=== PATIENT | female | born 1930 | race Caucasian/White ===

== ENCOUNTER 2017-05-06 12:07 | Inpatient (IN) | payer OTHER, MEDICARE ==
--- NOTE | 2017-05-06 15:03 | PDOC ---
History of Present Illness <Pepe Singh - Last Filed: 05/06/17 19:51> - History of Present Illness Initial Comments: 87 y/o female with PMH of HTN, CHF, and angina presenting with left hip pain and left foot parasthesias after tripping over a shopping cart wheel and falling. She states she fell to her left side but and did not hit her head or injure any other part of her body. Denies any pre-syncopal sensation, chest pain , sob, etc. Her PCP is Dr. Moreau. 05/06/17 15:18 <Brayan Manrique - Last Filed: 05/09/17 12:49> - General Chief Complaint: Injury Stated Complaint: FALL Time Seen by Provider: 05/06/17 15:02 Past History <Pepe Singh - Last Filed: 05/06/17 19:51> - Past Medical History Anemia: No Asthma: No Cancer: No Cardiac Disorders: No CVA: No COPD: No CHF: No Dementia: No Diabetes: No GI Disorders: Yes (BLEEDING ULCER 2010) Disorders: No HTN: Yes Hypercholesterolemia: Yes Liver Disease: No Seizures: No Thyroid Disease: Yes (HYPOTHYROID) - Surgical History Abdominal Surgery: No Appendectomy: No Cardiac Surgery: No Cholecystectomy: Yes Lung Surgery: No Neurologic Surgery: No Orthopedic Surgery: No - Suicide/Smoking/Psychosocial Hx Smoking History: Never smoked Have you smoked in the past 12 months: No Information on smoking cessation initiated: No Hx Alcohol Use: No Drug/Substance Use Hx: No Substance Use Type: None, Alcohol Hx Substance Use Treatment: No <Brayan Manrique - Last Filed: 05/09/17 12:49> - Past Medical History Allergies/Adverse Reactions: Allergies Allergy/AdvReac Type Severity Reaction Status Date / Time No Known Allergies Allergy Verified 05/06/17 12:09 Home Medications: Ambulatory Orders Beta-Carotene(A) W-C & E/Min [Ocuvite Tablet] 1 each PO DAILY 02/15/13 Ca Cmb No.1/Vit D3/B-6/FA/B12 [Vitamin D3 1,000 Unit Tablet] 2,000 each PO DAILY 02/15/13 Isosorbide Mononitrate [Imdur -] 60 mg PO DAILY 02/15/13 Simvastatin [Zocor -] 20 mg PO DAILY 02/15/13 Verapamil HCl [Verapamil ER] 240 mg PO DAILY 02/15/13 Review of Systems - Review of Systems Constitutional: No: Chills, Diaphoresis, Fever HEENTM: No: Blurred Vision Respiratory: No: Cough, Shortness of Breath, Productive cough Cardiac (ROS): Yes: Lightheadedness. No: Palpitations, Syncope ABD/GI: No: Constipated, Diarrhea, Nausea, Vomiting : No: Dysuria, Discharge, Frequency Integumentary: No: Lesions, Pallor, Rash Neurological: No: Headache, Numbness <HilariaAranzadaniel - Last Filed: 05/09/17 12:49> *Physical Exam - Vital Signs Last Vital Signs Temp Pulse Resp BP Pulse Ox 98.0 F 68 20 157/60 94 L 05/06/17 12:09 05/06/17 18:50 05/06/17 18:50 05/06/17 18:50 05/06/17 18:50 <SamanthaPepe - Last Filed: 05/06/17 19:51> - Vital Signs Last Vital Signs Temp Pulse Resp BP Pulse Ox 98.0 F 73 18 144/64 100 05/06/17 12:09 05/06/17 12:09 05/06/17 12:09 05/06/17 12:09 05/06/17 12:09 - Physical Exam General Appearance: Yes: Nourished, Appropriately Dressed. No: Apparent Distress HEENT: positive: EOMI, Normal ENT Inspection, Normal Voice Neck: positive: Trachea midline, Normal Thyroid, Supple. negative: Tender, Rigid Respiratory/Chest: positive: Lungs Clear, Normal Breath Sounds. negative: Chest Tender, Respiratory Distress, Accessory Muscle Use Cardiovascular: positive: Regular Rhythm, Regular Rate Gastrointestinal/Abdominal: positive: Normal Bowel Sounds, Flat, Soft. negative : Tender Musculoskeletal: negative: Normal Inspection (Sightly shortened anrotated left lower extremity.) Extremity: positive: Normal Capillary Refill, Normal Inspection, Normal Range of Motion, Other (Neurvascularly intact at left distal extremity but with slight inconsistent paresthesias.) Integumentary: positive: Normal Color, Dry, Warm Neurologic: positive: safety analyst II-XII NML intact, Fully Oriented, Alert, Normal Mood/ Affect. negative: Motor Strength 5/5 (Strength 5/5 in BL uEs and in RLE with good strength at knee and ankle of LLE without ability ot move hip secondary to defomrity and pain. No TTp at L ankel or Left knee. Obvious deformity at left hip.) <Brayan Manrique - Last Filed: 05/09/17 12:49> ED Treatment Course - LABORATORY CBC & Chemistry Diagram: 05/06/17 15:18 05/06/17 15:18 - ADDITIONAL ORDERS Additional order review: Laboratory Results 05/06/17 05/06/17 05/06/17 15:18 15:18 15:18 PT with INR 11.80 INR 1.04 Sodium 141 Potassium 4.0 Chloride 106 Carbon Dioxide 28 Anion Gap 7 L BUN 19 H Creatinine 0.9 Creat Clearance w eGFR 58.95 Random Glucose 95 Calcium 9.1 Total Bilirubin 0.8 AST 17 ALT 19 Alkaline Phosphatase 61 Total Protein 7.0 Albumin 3.9 Blood Type O POSITIVE Antibody Screen Negative 05/06/17 15:18 RBC 4.51 MCV 91.5 MCHC 32.7 RDW 13.9 MPV 8.7 Neutrophils % 85.5 H Lymphocytes % 7.8 L Monocytes % 5.7 Eosinophils % 0.6 Basophils % 0.4 - Medications Given in the ED: ED Medications Discontinued Medications Generic Name Dose Route Start Last Admin Trade Name Matthew PRN Reason Stop Dose Admin Morphine Sulfate 2 mg 05/06/17 16:09 05/06/17 16:33 Morphine Injection - IVPUSH 05/06/17 16:10 2 mg ONCE ONE Administration <Pepe Singh - Last Filed: 05/06/17 19:51> - LABORATORY CBC & Chemistry Diagram: 05/09/17 06:30 05/09/17 06:30 <Brayan Manrique - Last Filed: 05/09/17 12:49> Medical Decision Making - Medical Decision Making Hip xray demonstrating transervical comminuted fracture. Dr. Izquierdo evaluated patient and slated for surgery in the AM. Microblogged hospitalist as he is a [place] patient and they will get back to us after HELPER COORDINATOR sign out. Patient signed out to Dr. Martinez in stable condition pending sign out to medicine team HELPER COORDINATOR. 05/06/17 19:36 <Brayan Manrique - Last Filed: 05/09/17 12:49> *DC/Admit/Observation/Transfer - Discharge Dispostion Admit: Yes <Pepe Singh - Last Filed: 05/06/17 19:51> <Brayan Manrique - Last Filed: 05/09/17 12:49> Diagnosis at time of Disposition: Transcervical fracture of left femur Qualifiers: Encounter type: initial encounter Fracture type: closed Qualified Code(s): S72.032A - Displaced midcervical fracture of left femur, initial encounter for closed fracture - Discharge Dispostion Condition at time of disposition: Stable
--- NOTE | 2017-05-06 16:06 | PDOC ---
Attending Attestation - Resident Resident Name: HilariaAranzamincasey - ED Attending Attestation I have performed the following: I have examined & evaluated the patient, The case was reviewed & discussed with the resident, I agree w/resident's findings & plan, Exceptions are as noted - HPI HPI: 05/06/17 16:05 87y F presenting s/p fall after tripping on the wheel of a shopping cart with hip/leg pain. landed on L side, no head injury no head injury/loc on exam pt has a shortened extrenally rotated L hip n/v intact distally xray c/w ith hip fracture will admit for further management 05/06/17 18:14 lent aware npo after midinght pt had 2mg of morphine with good effect no pain currently - Physicial Exam PE: 05/10/17 16:37 see above - Medical Decision Making 05/10/17 16:37 see above Heart Score/ECG Review - ECG Impressions Comment:: 05/06/17 18:15 Twelve-lead EKG was performed and reviewed by me. There is normal sinus rhythm with a normal rate. Rate of 68 QTc interval 491 Nonspecific T wave abnormality
[2017-05-06] MEDS ORDERED: morphine CARPU-JECT 2 MG/1 ML DISP.SYRIN IVPUSH ONE (16:09)
[2017-05-06] MEDS ORDERED: morphine CARPU-JECT 2 MG/1 ML DISP.SYRIN ONE (16:28)
[2017-05-06 16:35] LABS: BASOPHIL 0.4 % (0-2.0); EOSINOPHIL 0.6 % (0-4.5); MCH 29.9 pg (25.7-33.7); MCHC 32.7 g/dl (32.0-36.0); MEAN CELL VOLUME 91.5 fl (80-96); MEAN PLT VOLUME 8.7 fl (7.5-11.1); NEUTROPHILS 85.5 % (42.8-82.8); PLATELET COUNT 276 K/MM3 (134-434); RDW 13.9 % (11.6-15.6); WHITE BLOOD COUNT 12.6 K/mm3 (4.0-10.0)
[2017-05-06 17:01] LABS: INR 1.04 (0.82-1.09); PROTHROMBIN TIME (PATIENT) 11.8 SEC (9.98-11.88)
--- NOTE | 2017-05-06 17:01 | CONS ---
ORTHOPEDIC EMERGENCY ROOM CONSULTATION/[facility] DATE OF CONSULTATION: 05/06/2017 HISTORY OF PRESENT ILLNESS: Patient is status post a fall today, complaining of pain and inability to ambulate to the left hip. Patient denies LOC. She is on no anticoagulation, does not smoke. She is an ambulator. PHYSICAL EXAMINATION: Her left lower extremity is shortened and externally rotated. Marked increased pain with range of motion of her hip. Good range of motion of knee, ankle, and toes. Neurovascularly intact. Nontender pelvis, pubic region, iliac wing, SI joint, and sacrum. Otherwise, neurovascularly intact. X-rays, taken today in the emergency room, show a displaced left femoral neck fracture. IMPRESSION: Displaced left femoral neck fracture. Risks, benefits, and alternatives discussed with the patient and with daughter in great detail. Patient will be booked for a left hemiarthroplasty tomorrow. We will keep her n.p.o. past midnight. BENJAMIN CRUZ M.D. [id number]
[2017-05-06 17:11] LABS: ALBUMIN 3.9 g/dl (3.4-5.0); ANION GAP 7 (8-16); CALCIUM 9.1 mg/dL (8.5-10.1); CO2 28 mmol/L (21-32); CREATININE 0.9 mg/dL (0.55-1.02); GLUCOSE,RANDOM 95 mg/dL (74-106); SGPT/ALT 19 U/L (12-78)
[2017-05-06 17:17] LABS: ALK PHOS 61 U/L (45-117); BILIRUBIN,TOTAL 0.8 mg/dL (0.2-1.0); SGOT/AST 17 U/L (15-37)
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
[2017-05-06] MEDS ORDERED: morphine SULFATE 4 MG/ML VIAL IVPUSH PRN (20:01)
[2017-05-06] MEDS ORDERED: morphine SULFATE 4 MG/ML VIAL ONE (22:26)
[2017-05-07] MEDS ORDERED: morphine SULFATE 4 MG/ML VIAL IVPUSH PRN ×2 (02:31→16:25)
[2017-05-07 02:48] VITALS: BMI 29.5
[2017-05-07] MEDS ORDERED: DEXTROSE 5%-0.45% SALINE 1,000 ML IV SCH ×2 (04:45→16:25)
[2017-05-07 08:28] LABS: BASOPHIL 0.8 % (0-2.0); EOSINOPHIL 0.7 % (0-4.5); MCH 29.4 pg (25.7-33.7); MCHC 32.7 g/dl (32.0-36.0); MEAN PLT VOLUME 8.4 fl (7.5-11.1); NEUTROPHILS 76.9 % (42.8-82.8); PLATELET COUNT 219 K/MM3 (134-434); RDW 13.9 % (11.6-15.6)
[2017-05-07 08:53] LABS: ANION GAP 8 (8-16); CALCIUM 8.7 mg/dL (8.5-10.1); CO2 27 mmol/L (21-32); CREATININE 0.7 mg/dL (0.55-1.02); GLUCOSE,RANDOM 103 mg/dL (74-106); MAGNESIUM 1.9 mg/dL (1.8-2.4)
--- NOTE | 2017-05-07 08:59 | CONSULT ---
Consult - text type - Consultation Consultation Note: FULL CONSULT DICTATED LAST NIGHT IN ER IMP: LEFT FEMORAL NECK (DISPLACED) HIP FX PLAN: ---> TODAY FOR HEMIARTHROPLASTY
--- NOTE | 2017-05-07 09:32 | PN ---
Progress Note (short form) - Note Progress Note: Pt seen and examined. She has a left hip/femoral neck fracture. Her LLE is shortened and externally rotated, but grossly NVI. She is NPO for left hip hemiarthroplasty surgery today. All questions and concerns were addressed.
--- NOTE | 2017-05-07 11:16 | PN ---
Progress Note, Physician Chief Complaint: Ms Hair says her leg is hurting and she did not sleep well last night. Denies cp, sob, n/v. - Current Medication List Current Medications: Active Medications Dextrose/Sodium Chloride (D5-1/2ns -) 1,000 mls @ 30 mls/hr IV ASDIR OLINDA Last Admin: 05/07/17 04:54 Dose: 30 mls/hr Isosorbide Mononitrate (Imdur -) 60 mg PO DAILY OLINDA Morphine Sulfate (Morphine Sulfate) 2 mg IVPUSH Q4H PRN PRN Reason: PAIN Last Admin: 05/07/17 02:41 Dose: 2 mg Non-Formulary Medication (Beta-Carotene(A) W-C & E/Min [Ocuvite Tablet]) 1 each PO DAILY OLINDA Non-Formulary Medication (Ca Cmb No.1/Vit D3/B-6/Fa/B12 [Vitamin D3 1,000 Unit Tablet]) 2,000 each PO DAILY OLINDA Non-Formulary Medication (Simvastatin) 20 mg PO DAILY OLINDA Non-Formulary Medication (Verapamil Hcl [Verapamil Er]) 240 mg PO DAILY [facility] - Objective Vital Signs: Vital Signs Temperature 36.8 C 05/07/17 09:43 Pulse Rate 83 05/07/17 09:43 Respiratory Rate 18 05/07/17 09:43 Blood Pressure 153/74 05/07/17 09:43 O2 Sat by Pulse Oximetry (%) 94 L 05/07/17 02:48 Constitutional: Yes: Well Nourished, No Distress, Calm Cardiovascular: Yes: Regular Rate and Rhythm. No: Gallop, Murmur, Rub Respiratory: Yes: Regular, CTA Bilaterally. No: Rales, Rhonchi, Wheezes Gastrointestinal: Yes: Normal Bowel Sounds, Soft. No: Distention, Tenderness Extremities: Yes: WNL Edema: No Labs: CBC, BMP 05/07/17 07:30 05/07/17 07:30 INR, PTT INR 1.04 (0.82-1.09) 05/06/17 15:18 Problem List - Problems (1) Fracture of femoral neck, left Assessment/Plan: -patient with mechanical fall and fracture -medical stable for surgery -cardiology note reviewed -planning for intervention today per ortho -SNF placement Code(s): S72.002A - FRACTURE OF UNSP PART OF NECK OF LEFT FEMUR, INIT Qualifiers: Encounter type: initial encounter (2) Hyperlipidemia Assessment/Plan: -continue statin Code(s): E78.5 - HYPERLIPIDEMIA, UNSPECIFIED (3) Hypertension Assessment/Plan: -continue imdur and verapamil Code(s): I10 - ESSENTIAL (PRIMARY) HYPERTENSION Qualifiers: Hypertension type: essential hypertension Qualified Code(s): I10 - Essential (primary) hypertension
--- NOTE | 2017-05-07 11:32 | CON.CARD ---
Consult Consult Specialty:: Cardiology Reason for Consultation:: preop clearence - History of Present Illness Chief Complaint: hip fx - History Source History Provided By: Patient, Significant Other, Medical Record - Past Medical History Cardio/Vascular: Yes: CAD, HTN, Hyperlipdemia Gastrointestinal: Yes: Gastritis, GI Bleed, Peptic Ulcer Disease - Past Surgical History Past Surgical History: Yes: Cataract Removal (left eye), Cholecystectomy - Alcohol/Substance Use Hx Alcohol Use: No - Smoking History Smoking history: Never smoked Have you smoked in the past 12 months: No - Social History Occupation: Former housewife Home Medications - Allergies Allergies/Adverse Reactions: Allergies Allergy/AdvReac Type Severity Reaction Status Date / Time No Known Allergies Allergy Verified 05/06/17 12:09 - Home Medications Home Medications: Ambulatory Orders Beta-Carotene(A) W-C & E/Min [Ocuvite Tablet] 1 each PO DAILY 02/15/13 Ca Cmb No.1/Vit D3/B-6/FA/B12 [Vitamin D3 1,000 Unit Tablet] 2,000 each PO DAILY 02/15/13 Isosorbide Mononitrate [Imdur -] 60 mg PO DAILY 02/15/13 Simvastatin [Zocor -] 20 mg PO DAILY 02/15/13 Verapamil HCl [Verapamil ER] 240 mg PO DAILY 02/15/13 Family Disease History - Family Disease History Family Disease History: Heart Disease: Father Review of Systems - Review of Systems Constitutional: reports: No Symptoms Eyes: reports: No Symptoms HENT: reports: No Symptoms Neck: reports: No Symptoms Cardiovascular: reports: No Symptoms Gastrointestinal: reports: No Symptoms Genitourinary: reports: No Symptoms Breasts: reports: No Symptoms Reported Musculoskeletal: reports: No Symptoms Integumentary: reports: No Symptoms Neurological: reports: No Symptoms Endocrine: reports: No Symptoms Hematology/Lymphatic: reports: No Symptoms Psychiatric: reports: No Symptoms Vital Signs: Vital Signs Temperature 98.2 F 05/07/17 09:43 Pulse Rate 83 05/07/17 09:43 Respiratory Rate 18 05/07/17 09:43 Blood Pressure 153/74 05/07/17 09:43 O2 Sat by Pulse Oximetry (%) 94 L 05/07/17 02:48 Constitutional: Yes: Well Nourished, No Distress, Calm Eyes: Yes: WNL, Conjunctiva Clear, EOM Intact HENT: Yes: WNL, Atraumatic, Normocephalic Neck: Yes: WNL, Supple, Trachea Midline Respiratory: Yes: WNL, Regular, CTA Bilaterally Gastrointestinal: Yes: WNL, Normal Bowel Sounds Renal/: Yes: WNL Cardiovascular: Yes: WNL, Regular Rate and Rhythm Musculoskeletal: Yes: WNL Extremities: Yes: External Rotation Integumentary: Yes: WNL Neurological: Yes: WNL, Alert, Oriented ...Motor Strength: WNL Psychiatric: Yes: WNL, Alert, Oriented - Other Data Labs, Other Data: CBC, BMP 05/07/17 07:30 05/07/17 07:30 INR, PTT INR 1.04 (0.82-1.09) 05/06/17 15:18 Laboratory Tests 05/06/17 05/06/17 05/06/17 15:18 15:18 15:18 WBC 12.6 H RBC 4.51 Hgb 13.5 Hct 41.3 MCV 91.5 MCH 29.9 MCHC 32.7 RDW 13.9 Plt Count 276 MPV 8.7 Neutrophils % 85.5 H Lymphocytes % 7.8 L Monocytes % 5.7 Eosinophils % 0.6 Basophils % 0.4 PT with INR 11.80 INR 1.04 Sodium 141 Potassium 4.0 Chloride 106 Carbon Dioxide 28 Anion Gap 7 L BUN 19 H Creatinine 0.9 Creat Clearance w eGFR 58.95 Random Glucose 95 Calcium 9.1 Phosphorus Magnesium Total Bilirubin 0.8 AST 17 ALT 19 Alkaline Phosphatase 61 Total Protein 7.0 Albumin 3.9 Blood Type Antibody Screen 05/06/17 05/07/17 05/07/17 15:18 07:30 07:30 WBC 11.0 H RBC 4.59 Hgb 13.5 Hct 41.3 MCV 90.0 MCH 29.4 MCHC 32.7 RDW 13.9 Plt Count 219 D MPV 8.4 Neutrophils % 76.9 Lymphocytes % 10.1 D Monocytes % 11.5 H D Eosinophils % 0.7 Basophils % 0.8 PT with INR INR Sodium 142 Potassium 3.6 Chloride 107 Carbon Dioxide 27 Anion Gap 8 BUN 16 Creatinine 0.7 D Creat Clearance w eGFR Random Glucose 103 Calcium 8.7 Phosphorus 3.0 Magnesium 1.9 Total Bilirubin AST ALT Alkaline Phosphatase Total Protein Albumin Blood Type O POSITIVE Antibody Screen Negative Imaging - Results Chest X-ray: Image Reviewed (no i/e) EKG: Image Reviewed (sr apcs) Problem List - Problems (1) DVT prophylaxis Code(s): [id number] - (2) Fracture of femoral neck, left Code(s): S72.002A - FRACTURE OF UNSP PART OF NECK OF LEFT FEMUR, INIT (3) History of angina Code(s): Z86.79 - PERSONAL HISTORY OF OTHER DISEASES OF THE CIRCULATORY SYSTEM (4) Left knee pain Code(s): M25.562 - PAIN IN LEFT KNEE (5) Leukocytosis Code(s): D72.829 - ELEVATED WHITE BLOOD CELL COUNT, UNSPECIFIED (6) Transcervical fracture of left femur Code(s): S72.032A - DISPLACED MIDCERVICAL FRACTURE OF LEFT FEMUR, INIT Qualifiers: Encounter type: initial encounter Fracture type: closed Qualified Code(s) : S72.032A - Displaced midcervical fracture of left femur, initial encounter for closed fracture (7) Arthralgia Code(s): M25.50 - PAIN IN UNSPECIFIED JOINT Qualifiers: Joint pain location: knee Laterality: left Qualified Code(s): M25.562 - Pain in left knee (8) Cellulitis of left leg Code(s): L03.116 - CELLULITIS OF LEFT LOWER LIMB (9) Edema Code(s): R60.9 - EDEMA, UNSPECIFIED Qualifiers: Edema type: localized Qualified Code(s): R60.0 - Localized edema (10) Humeral surgical neck fracture Code(s): S42.213A - UNSP DISP FX OF SURGICAL NECK OF UNSP HUMERUS, INIT (11) Hyperlipidemia Code(s): E78.5 - HYPERLIPIDEMIA, UNSPECIFIED (12) Hypertension Code(s): I10 - ESSENTIAL (PRIMARY) HYPERTENSION (13) Swelling of left knee joint Code(s): M25.462 - EFFUSION, LEFT KNEE Assessment/Plan femur fx ?h/o angina - no documented cad as per daughter no chf recent KS or recent CP htn hlp echo nl ef moderate MR ekg wnl apc's Plan pain controll dvt plx patient is mild to moderate risks for cardiovascular complication during orthopedic surgery. She is cleared and medically optimized. D/w daughter who understands risks of surgery at the advanced age.
--- NOTE | 2017-05-07 12:51 | EKG ---
Test Reason : Blood Pressure : / mmHG Vent. Rate : 068 BPM Atrial Rate : 068 BPM P-R Int : 196 ms QRS Dur : 092 ms QT Int : 462 ms P-R-T Axes : 115 022 043 degrees QTc Int : 491 ms POOR DATA QUALITY, INTERPRETATION MAY BE ADVERSELY AFFECTED SINUS RHYTHM WITH PREMATURE SUPRAVENTRICULAR COMPLEXES NONSPECIFIC T WAVE ABNORMALITY PROLONGED QT ABNORMAL ECG WHEN COMPARED WITH ECG OF 15-JUN-2003 14:14, PREMATURE SUPRAVENTRICULAR COMPLEXES ARE NOW PRESENT Confirmed by DAKOTA MCCULLOUGH, LISA ([id number]) on 05/07/2017 12:51:32 PM Referred By: Confirmed By:LISA DUNCAN MD
[2017-05-07] MEDS ORDERED: BUPIVACAINE HCL/PF 0.5% (5MG/ML) 10 ML VIAL ONE (13:36)
[2017-05-07] MEDS ORDERED: ceFAZolin SODIUM 1 GM VIAL ONE (14:25)
[2017-05-07] MEDS ORDERED: ceFAZolin SODIUM 1 GM VIAL IVPB ONE (14:28)
--- NOTE | 2017-05-07 15:17 | OP ---
Operative Note - Note: Operative Date: 05/07/17 Pre-Operative Diagnosis: left hip/femoral neck fracture Operation: left hip hemiarthroplasty Implants: Marcelino Hip Hemiarthroplasty: 44mm Head, #4 Stem, Standard neck Surgeon: Tal Tapia Academic Affairs Coordinator: Don Graves Anesthesiologist/AIR POLLUTION AUDITOR: Barrera Fofana Anesthesia: MAC Specimens Removed: femoral head Estimated Blood Loss (mls): 75 Drains, Volume Out (mls): 0 Blood Volume Replaced (mls): 0 Fluid Volume Replaced (mls): 1,000 Operative Report Dictated: Yes
--- NOTE | 2017-05-07 19:32 | OP ---
DATE OF OPERATION: PREOPERATIVE DIAGNOSIS: Left hip displaced femoral neck fracture. POSTOPERATIVE DIAGNOSIS: Left hip displaced femoral neck fracture. PROCEDURE: Left hip hemiarthroplasty. SURGEON: Mariano Chavez M.D. FRUIT GRADER OPERATOR: Baylee Schaefer NURSE SLUBBER TENDER: Barrera Fofana CRNA ANESTHESIA: MAC anesthesia with sinal. DRAINS: None. COMPLICATIONS: None. SPECIMEN: Femoral head. BLOOD LOSS: 75 mL. BLOOD GIVEN/FLUID REPLACEMENT: 1000 mL. INDICATION: This patient is an 87-year-old female with preoperative diagnosis of a displaced left femoral neck fracture. After understanding the potential risks, complications, alternatives, benefits to surgery versus nonsurgical treatment, the patient elected to undergo this procedure. Patient understands a life-long risk of dislocation, need for additional surgery, infection, need for physical therapy, leg length discrepancy, etc. DESCRIPTION OF PROCEDURE: Patient brought to the operating room, peripheral IV placed, IV sedation given, 1 g of IV Ancef was given, spinal anesthesia was induced and MAC anesthesia was induced. She was placed into the operating table in the right lateral decubitus position. The left lower extremity was prepped and draped in the sterile fashion. A curvilinear posterolateral standard approach. The incision was marked out with a marking pen and made with a number ten scalpel blade. Subcutaneous hemostasis achieved with a Bovie cautery. Dissection done down to the lateral fascia. This was incised, and Charnley retractor was placed into the blade with the medium blades. The leg was put into a position of forward flexion and internal rotation to put tension on the short external rotators, and they were taken off with a Bovie cautery from the posterior aspect of femoral neck, much was already taken off because of the fracture. The broach was placed onto the femoral neck and the appropriate angle of the neck cut was cauterized in with a Bovie cautery. The oscillating saw was used to cut down through this femoral neck cut. The bone was removed with a rongeur. Corkscrew was used to remove the femoral head. We trialed it, seemed to be a 44. Therefore we trialed with a 44, 45, 46, and likely will be a 44-mm head. The area was copiously irrigated and washed out. A little was removed. The capsule had been incised longitudinally for better exposure. Next, we prepared the femoral canal in the standard way, first with the canal finder, then with sequential broaches from 0 to 4; 4 was quite stable. We went down to the appropriate depth, standard neck and 44-mm head was placed on, seemed to have excellent suction, stability, and was quite stable in all positions. Neck the hip was dislocated, femoral neck and standard stem removed. The broach was removed. The area irrigated, washed out. Then we put in a real Edroy left hip number 4 stem hemiarthroplasty femoral stem, came down to the right position. The rongeur was used to remove a small amount of debris around the medial . Next, we put on the standard neck and 44-mm head, reduced it; this seemed to be quite good in all planes. It was extremely stable. The area was copiously irrigated and washed out. Next, the capsule was repaired with number 1 Tycron suture. This increased stability. Next, the deep fascia was repaired with number 1 Tycron suture with horizontal mattresses. Next the area was copiously irrigated and washed out. The deep fat layer was closed with 0 Vicryl, deep dermal layer closed with 2-0 Vicryl, and final skin reapproximation was done with a running subcuticular 3-0 V-Loc suture. The area was then washed and dried, prepped with Aquacel dressing. Patient was taken out of the lateral decubitus position. Total blood loss was 75 mL, total operative time was 45 minutes. There were no complications during the case. The patient tolerated the procedure quite well. An x-ray was taken. She was brought to the recovery room in stable condition. MARIANO CHAVEZ M.D. [id number]
[2017-05-07] MEDS: ATORVASTATIN CA 20 MG TABLET (FP) PO SCH (21:43)
[2017-05-07] MEDS: CEFAZOLIN 1 GM PUSH 1 GM/10 ML DISP.SYRIN IVPUSH SCH (21:43)
[2017-05-07] MEDS ORDERED: CEFAZOLIN 1 GM/D5W 50 ML IVPB SCH (22:00)
[2017-05-07] MEDS ORDERED: ATORVASTATIN CA 10 MG TABLET (FP) PO SCH (22:00)
[2017-05-08] MEDS: CEFAZOLIN 1 GM PUSH 1 GM/10 ML DISP.SYRIN IVPUSH SCH ×3 (02:15→17:55)
[2017-05-08] MEDS ORDERED: ASPIRIN 325 MG TABLET PO SCH (08:00)
[2017-05-08 08:13] LABS: BASOPHIL 0.3 % (0-2.0); EOSINOPHIL 0.1 % (0-4.5); MCH 29.9 pg (25.7-33.7); MCHC 33.5 g/dl (32.0-36.0); MEAN CELL VOLUME 89.5 fl (80-96); MEAN PLT VOLUME 8.5 fl (7.5-11.1); NEUTROPHILS 80.8 % (42.8-82.8); PLATELET COUNT 204 K/MM3 (134-434); RDW 13.8 % (11.6-15.6); WHITE BLOOD COUNT 16.5 K/mm3 (4.0-10.0)
--- NOTE | 2017-05-08 08:21 | PN ---
Progress Note (short form) - Note Progress Note: POD #1 - s/p left hip hemiarthroplasty under spinal anesthesia. VSS. Pt. doing well, resting comfortably in bed. Awake, alert, offering no complaints. No apparent anesthetic complications noted. Continue current care.
[2017-05-08 08:47] LABS: ANION GAP 10 (8-16); CALCIUM 8.4 mg/dL (8.5-10.1); CO2 27 mmol/L (21-32); GLUCOSE,RANDOM 105 mg/dL (74-106); MAGNESIUM 1.7 mg/dL (1.8-2.4)
[2017-05-08 08:49] LABS: CREATININE 0.8 mg/dL (0.55-1.02); PHOSPHOROUS 2.9 mg/dL (2.5-4.9)
--- NOTE | 2017-05-08 09:59 | PN ---
Progress Note (short form) - Note Progress Note: Ortho Pt seen and examined s/p left hip rivas pod #1 Selected Entries 05/08/17 06:00 Temperature 98.5 F Pulse Rate 83 Respiratory 20 Rate Blood Pressure 143/60 Laboratory Tests 05/08/17 06:00 WBC 16.5 H D Hgb 12.6 Hct 37.5 Plt Count 204 dressing c/d/i, calf soft, nt nvi a/p PT hip precautions dvt ppx pain control d/c planning
[2017-05-08] MEDS ORDERED: VERAPAMIL HCL 240 MG E.R. TABLET (FP) PO SCH (10:00)
[2017-05-08] MEDS ORDERED: ISOSORBIDE MONONITRATE 60 MG TAB.SR.24H (FP) PO SCH (10:00)
[2017-05-08] MEDS: VERAPAMIL HCL 240 MG E.R. TABLET (FP) PO SCH (10:22)
[2017-05-08] MEDS: ISOSORBIDE MONONITRATE 60 MG TAB.SR.24H (FP) PO SCH (10:33)
[2017-05-08] MEDS: ASPIRIN 325 MG TABLET PO SCH (10:33)
--- NOTE | 2017-05-08 16:17 | PN ---
Progress Note, Physician Chief Complaint: Ms Hair says her leg is hurting but is better. No cp, sob, n/v - Current Medication List Current Medications: Active Medications Aspirin (Asa -) 325 mg PO DAILY@0800 [facility] Last Admin: 05/08/17 10:33 Dose: 325 mg Atorvastatin Calcium (Lipitor -) 20 mg PO HS [facility] Last Admin: 05/07/17 21:43 Dose: 20 mg Fentanyl (Sublimaze Injection -) 25 mcg IVPUSH [id number] PRN PRN Reason: PAIN Cefazolin Sodium (Ancef -) 1 gm in 10 mls @ 120 mls/hr IVPUSH Q8H-IV [facility] Stop: 05/08/17 21:59 Last Admin: 05/08/17 10:20 Dose: 120 mls/hr Dextrose/Sodium Chloride (D5-1/2ns -) 1,000 mls @ 30 mls/hr IV ASDIR [facility] Last Admin: 05/07/17 16:25 Dose: 30 mls/hr Isosorbide Mononitrate (Imdur -) 60 mg PO DAILY [facility] Last Admin: 05/08/17 10:33 Dose: 60 mg Morphine Sulfate (Morphine Sulfate) 2 mg IVPUSH Q4H PRN PRN Reason: PAIN Last Admin: 05/07/17 18:47 Dose: 2 mg Verapamil HCl (Calan Sr -) 240 mg PO DAILY [facility] Last Admin: 05/08/17 10:22 Dose: 240 mg - Objective Vital Signs: Vital Signs Temperature 36.8 C 05/08/17 13:57 Pulse Rate 86 05/08/17 13:57 Respiratory Rate 18 05/08/17 13:57 Blood Pressure 98/55 05/08/17 13:57 O2 Sat by Pulse Oximetry (%) 99 05/07/17 22:00 Constitutional: Yes: Well Nourished, No Distress, Calm Cardiovascular: Yes: Regular Rate and Rhythm. No: Gallop, Murmur, Rub Respiratory: Yes: Regular, CTA Bilaterally. No: Rales, Rhonchi, Wheezes Gastrointestinal: Yes: Normal Bowel Sounds, Soft. No: Distention, Tenderness Extremities: Yes: WNL Edema: No Labs: CBC, BMP 05/08/17 06:00 05/08/17 06:00 INR, PTT INR 1.04 (0.82-1.09) 05/06/17 15:18 Problem List - Problems (1) Fracture of femoral neck, left Code(s): S72.002A - FRACTURE OF UNSP PART OF NECK OF LEFT FEMUR, INIT Qualifiers: Encounter type: initial encounter (2) Hyperlipidemia Code(s): E78.5 - HYPERLIPIDEMIA, UNSPECIFIED (3) Hypertension Code(s): I10 - ESSENTIAL (PRIMARY) HYPERTENSION Qualifiers: Hypertension type: essential hypertension Qualified Code(s): I10 - Essential (primary) hypertension Assessment/Plan (1) Fracture of femoral neck, left Assessment/Plan: -s/p surgical intervention without complications -appreciate ortho assistance -PT -plan for discharge to SNF Code(s): S72.002A - FRACTURE OF UNSP PART OF NECK OF LEFT FEMUR, INIT Qualifiers: Encounter type: initial encounter (2) Hyperlipidemia Assessment/Plan: -continue statin Code(s): E78.5 - HYPERLIPIDEMIA, UNSPECIFIED (3) Hypertension Assessment/Plan: -continue imdur and verapamil Code(s): I10 - ESSENTIAL (PRIMARY) HYPERTENSION Qualifiers: Hypertension type: essential hypertension Qualified Code(s): I10 - Essential (primary) hypertension
[2017-05-08] MEDS ORDERED: morphine SULFATE 4 MG/ML VIAL IVPB PRN (20:07)
[2017-05-08] MEDS: ATORVASTATIN CA 20 MG TABLET (FP) PO SCH (21:38)
[2017-05-09 08:08] LABS: MCH 29.9 pg (25.7-33.7); MCHC 33.2 g/dl (32.0-36.0); MEAN CELL VOLUME 90.2 fl (80-96); MEAN PLT VOLUME 8.6 fl (7.5-11.1); PLATELET COUNT 181 K/MM3 (134-434); RDW 13.4 % (11.6-15.6)
[2017-05-09 08:22] LABS: ANION GAP 8 (8-16); CALCIUM 7.9 mg/dL (8.5-10.1); CO2 26 mmol/L (21-32); GLUCOSE,RANDOM 90 mg/dL (74-106); MAGNESIUM 1.8 mg/dL (1.8-2.4)
[2017-05-09 08:24] LABS: CREATININE 0.9 mg/dL (0.55-1.02)
[2017-05-09] MEDS: VERAPAMIL HCL 240 MG E.R. TABLET (FP) PO SCH (09:08)
[2017-05-09] MEDS: oxyCODONE HCL 5 MG TABLET PO PRN ×2 (09:08→21:25)
[2017-05-09] MEDS: ASPIRIN 325 MG TABLET PO SCH (09:08)
[2017-05-09] MEDS: ISOSORBIDE MONONITRATE 60 MG TAB.SR.24H (FP) PO SCH (09:09)
--- NOTE | 2017-05-09 10:52 | PN ---
Progress Note (short form) - Note Progress Note: Ortho Pt seen and examined s/p left hip rivas pod #2 Selected Entries 05/09/17 05:08 Temperature 99.3 F Pulse Rate 74 Respiratory 20 Rate Blood Pressure 146/56 Laboratory Tests 05/09/17 06:30 WBC 17.0 H Hgb 10.8 D Hct 32.5 Plt Count 181 dressing c/d/i, calf soft, nt nvi a/p PT hip precautions dvt ppx pain control d/c planning
[2017-05-09] MEDS ORDERED: POTASSIUM CHLORIDE TABS 20 MEQ TABLET.ER (FP) PO ONE ×2 (11:18→17:30)
[2017-05-09] MEDS ORDERED: ENOXAPARIN NA (PORCINE) 40 MG/0.4 ML DISP.SYRIN SQ SCH (11:30)
--- NOTE | 2017-05-09 14:35 | PN ---
Progress Note, Physician Chief Complaint: Ms Hair says she feels great. Denies cp, sob, n/v. Says pain is very well controlled. - Current Medication List Current Medications: Active Medications Aspirin (Asa -) 325 mg PO DAILY@0800 [facility] Last Admin: 05/09/17 09:08 Dose: 325 mg Atorvastatin Calcium (Lipitor -) 20 mg PO HS [facility] Last Admin: 05/08/17 21:38 Dose: 20 mg Enoxaparin Sodium (Lovenox -) 40 mg SQ DAILY [facility] Fentanyl (Sublimaze Injection -) 25 mcg IVPUSH [id number] PRN PRN Reason: PAIN Dextrose/Sodium Chloride (D5-1/2ns -) 1,000 mls @ 30 mls/hr IV ASDIR [facility] Last Admin: 05/07/17 16:25 Dose: 30 mls/hr Isosorbide Mononitrate (Imdur -) 60 mg PO DAILY [facility] Last Admin: 05/09/17 09:09 Dose: 60 mg Morphine Sulfate (Morphine Sulfate) 1 mg IVPB Q4H PRN Oxycodone HCl (Roxicodone -) 5 mg PO Q4H PRN Last Admin: 05/09/17 09:08 Dose: 5 mg Verapamil HCl (Calan Sr -) 240 mg PO DAILY [facility] Last Admin: 05/09/17 09:08 Dose: 240 mg - Objective Vital Signs: Vital Signs Temperature 36.6 C 05/09/17 13:58 Pulse Rate 77 05/09/17 13:58 Respiratory Rate 18 05/09/17 13:58 Blood Pressure 100/46 05/09/17 13:58 O2 Sat by Pulse Oximetry (%) 98 05/08/17 21:00 Constitutional: Yes: Well Nourished, No Distress, Calm Cardiovascular: Yes: Regular Rate and Rhythm. No: Gallop, Murmur, Rub Respiratory: Yes: Regular, CTA Bilaterally. No: Rales, Rhonchi, Wheezes Gastrointestinal: Yes: Normal Bowel Sounds, Soft. No: Distention, Tenderness Extremities: Yes: WNL Edema: No Labs: CBC, BMP 05/09/17 06:30 05/09/17 06:30 INR, PTT INR 1.04 (0.82-1.09) 05/06/17 15:18 Problem List - Problems (1) Fracture of femoral neck, left Code(s): S72.002A - FRACTURE OF UNSP PART OF NECK OF LEFT FEMUR, INIT Qualifiers: Encounter type: initial encounter (2) Hyperlipidemia Code(s): E78.5 - HYPERLIPIDEMIA, UNSPECIFIED (3) Hypertension Code(s): I10 - ESSENTIAL (PRIMARY) HYPERTENSION Qualifiers: Hypertension type: essential hypertension Qualified Code(s): I10 - Essential (primary) hypertension (4) Leukocytosis Code(s): D72.829 - ELEVATED WHITE BLOOD CELL COUNT, UNSPECIFIED Assessment/Plan (1) Fracture of femoral neck, left Assessment/Plan: -s/p surgical intervention without complications -appreciate ortho assistance -continue PT -plan for discharge to SNF tomorrow Code(s): S72.002A - FRACTURE OF UNSP PART OF NECK OF LEFT FEMUR, INIT Qualifiers: Encounter type: initial encounter (2) Hyperlipidemia Assessment/Plan: -continue statin Code(s): E78.5 - HYPERLIPIDEMIA, UNSPECIFIED (3) Hypertension Assessment/Plan: -continue imdur and verapamil Code(s): I10 - ESSENTIAL (PRIMARY) HYPERTENSION Qualifiers: Hypertension type: essential hypertension Qualified Code(s): I10 - Essential (primary) hypertension (4) Leukocytosis -suspect chronic and increased secondary to stress from surgery -no signs of sepsis (fever, hypotension, malaise) -however want to confirm reactionary and not infectious -will obtain portable chest x-ray to evaluate for pneumonia -check urinalysis to evaluate for UTI -if both negative and WBC stable or improved, can discharge tomorrow
--- NOTE | 2017-05-09 15:18 | PATH ---
Surgical Pathology Report Patient Name: DORIS GRIJALVA Med. Rec. #: [id number] /Age/Gender: 1930 (Age: 87) / F Account: [id number] Location: [address] [place] [address]/[facility] Taken: 05/07/2017 Received: 05/08/2017 Reported: 05/09/2017 Physicians: Tal Tapia M.D. Specimen(s) Received LEFT FEMORAL HIP Clinical History Left hip fracture Final Diagnosis BONE, LEFT FEMORAL HEAD, REPLACEMENT: BONE WITH INTERSTITIAL HEMORRHAGE CONSISTENT WITH FRACTURE. Electronically Signed Dayne Schultz M.D. Gross Description Received in formalin, labeled "left femoral head," is a 4.2 x 4.2 x 3.5 cm. femoral head with no femoral neck attached. The margin of resection is red-brown, jagged and hemorrhagic. No areas of eburnation are identified. The articular surface is gaona-yellow and focally granular. The underlying trabecular bone is yellow, hard and focally hemorrhagic. A access service representative section is submitted in one cassette, following decalcification. 05/08/201705/08/2017
[2017-05-09] MEDS: ENOXAPARIN NA (PORCINE) 40 MG/0.4 ML DISP.SYRIN SQ SCH (17:23)
--- NOTE | 2017-05-09 20:31 | PN ---
Progress Note, Physician Chief Complaint: Pt A&Ox3; eating dinner. Denies chest pain, dyspnea, or leg pain, but finds it uncomfortable to have limited motion from the cushion strapped to her legs. Says she underwent physical therapy earlier today. History of Present Illness: 87 y/o white female with PMH of HTN, diastolic CHF, and angina presented with left hip pain and left foot parasthesias after tripping over a shopping cart wheel and falling. She states she fell to her left side but did not hit her head or injure any other part of her body. Denies any pre-syncopal sensation, chest pain, sob, etc. Her PCP is Dr. Moreau. - Current Medication List Current Medications: Active Medications Aspirin (Asa -) 325 mg PO DAILY@0800 [facility] Last Admin: 05/09/17 09:08 Dose: 325 mg Atorvastatin Calcium (Lipitor -) 20 mg PO HS [facility] Last Admin: 05/08/17 21:38 Dose: 20 mg Enoxaparin Sodium (Lovenox -) 40 mg SQ DAILY [facility] Last Admin: 05/09/17 17:23 Dose: 40 mg Fentanyl (Sublimaze Injection -) 25 mcg IVPUSH [id number] PRN PRN Reason: PAIN Isosorbide Mononitrate (Imdur -) 60 mg PO DAILY [facility] Last Admin: 05/09/17 09:09 Dose: 60 mg Morphine Sulfate (Morphine Sulfate) 1 mg IVPB Q4H PRN Oxycodone HCl (Roxicodone -) 5 mg PO Q4H PRN Last Admin: 05/09/17 09:08 Dose: 5 mg Verapamil HCl (Calan Sr -) 240 mg PO DAILY [facility] Last Admin: 05/09/17 09:08 Dose: 240 mg - Objective Vital Signs: Vital Signs Temperature 97.5 F L 05/09/17 17:58 Pulse Rate 71 05/09/17 17:58 Respiratory Rate 18 05/09/17 17:58 Blood Pressure 101/46 05/09/17 17:58 O2 Sat by Pulse Oximetry (%) 98 05/08/17 21:00 Constitutional: Yes: Calm Eyes: Yes: WNL HENT: Yes: WNL Neck: Yes: WNL Cardiovascular: Yes: Regular Rate and Rhythm, Murmur (2/4 diastolic murmur, RSB- ->base), S1, S2 Respiratory: Yes: WNL Gastrointestinal: Yes: Soft ...Rectal Exam: Yes: Deferred Genitourinary: Yes: Anuria Breast(s): Yes: WNL Musculoskeletal: Yes: Other (s/p LE fracture repair) Extremities: Yes: Cool Edema: No Peripheral Pulses WNL: Yes Wound/Incision: Yes: Sutures Intact Neurological: Yes: WNL Psychiatric: Yes: WNL Labs: CBC, BMP 05/09/17 06:30 05/09/17 06:30 INR, PTT INR 1.04 (0.82-1.09) 05/06/17 15:18 - ....Imaging Ultrasound: Report Reviewed (ECHO: normal LVEF; abnormal diastolic compiance; moderate PA) EKG: Image Reviewed (NSR; occasional APCs; nonspecific T wave changes) Problem List - Problems (1) Fracture of femoral neck, left Assessment/Plan: Pain management. Physical therapy. Code(s): S72.002A - FRACTURE OF UNSP PART OF NECK OF LEFT FEMUR, INIT Qualifiers: Encounter type: initial encounter (2) History of angina Assessment/Plan: Recommend lowering dose of ASA from 325 mg to 81 mg, unless other reasons exist for the need of the higher level. Code(s): Z86.79 - PERSONAL HISTORY OF OTHER DISEASES OF THE CIRCULATORY SYSTEM (3) Hyperlipidemia Assessment/Plan: on statin; f/u lipids. Code(s): E78.5 - HYPERLIPIDEMIA, UNSPECIFIED (4) Hypertension Assessment/Plan: On verapamil. f/u BP serially. Code(s): I10 - ESSENTIAL (PRIMARY) HYPERTENSION Qualifiers: Hypertension type: essential hypertension Qualified Code(s): I10 - Essential (primary) hypertension (5) Swelling of left knee joint Code(s): M25.462 - EFFUSION, LEFT KNEE (6) Hypomagnesemia Assessment/Plan: replete Mg and K+; f/u electrolytes. Code(s): E83.42 - HYPOMAGNESEMIA
--- NOTE | 2017-05-09 20:43 | PN ---
Progress Note, Physician Chief Complaint: Pt A&Ox3; sitting in chair; good appetite. She has no pain History of Present Illness: 87 y/o white female with PMH of HTN, diastolic CHF, and angina presented with left hip pain and left foot parasthesias after tripping over a shopping cart wheel and falling. She states she fell to her left side but did not hit her head or injure any other part of her body. Denies any pre-syncopal sensation, chest pain, sob, etc. Her PCP is Dr. Moreau. - Current Medication List Current Medications: Active Medications Aspirin (Asa -) 325 mg PO DAILY@0800 [facility] Last Admin: 05/09/17 09:08 Dose: 325 mg Atorvastatin Calcium (Lipitor -) 20 mg PO HS [facility] Last Admin: 05/08/17 21:38 Dose: 20 mg Enoxaparin Sodium (Lovenox -) 40 mg SQ DAILY [facility] Last Admin: 05/09/17 17:23 Dose: 40 mg Fentanyl (Sublimaze Injection -) 25 mcg IVPUSH [id number] PRN PRN Reason: PAIN Isosorbide Mononitrate (Imdur -) 60 mg PO DAILY [facility] Last Admin: 05/09/17 09:09 Dose: 60 mg Morphine Sulfate (Morphine Sulfate) 1 mg IVPB Q4H PRN Oxycodone HCl (Roxicodone -) 5 mg PO Q4H PRN Last Admin: 05/09/17 09:08 Dose: 5 mg Verapamil HCl (Calan Sr -) 240 mg PO DAILY [facility] Last Admin: 05/09/17 09:08 Dose: 240 mg - Objective Vital Signs: Vital Signs Temperature 97.5 F L 05/09/17 17:58 Pulse Rate 71 05/09/17 17:58 Respiratory Rate 18 05/09/17 17:58 Blood Pressure 101/46 05/09/17 17:58 O2 Sat by Pulse Oximetry (%) 98 05/08/17 21:00 Constitutional: Yes: No Distress Eyes: Yes: WNL HENT: Yes: WNL Neck: Yes: WNL Cardiovascular: Yes: Regular Rate and Rhythm, Murmur, S1, S2 Respiratory: Yes: WNL Gastrointestinal: Yes: Soft ...Rectal Exam: Yes: Deferred Genitourinary: No: Anuria Breast(s): Yes: WNL Musculoskeletal: Yes: Other (s/p left femur repair) Extremities: Yes: Cool, Other (mild left knee swelling) Edema: No Peripheral Pulses WNL: Yes Wound/Incision: Yes: Clean/Dry Neurological: Yes: WNL Psychiatric: Yes: WNL Labs: CBC, BMP 05/09/17 06:30 05/09/17 06:30 INR, PTT INR 1.04 (0.82-1.09) 05/06/17 15:18 Abnormal Lab Results 05/09/17 05/09/17 06:30 06:30 WBC 17.0 H Potassium 3.3 L BUN 27 H D Calcium 7.9 L Problem List - Problems (1) Fracture of femoral neck, left Assessment/Plan: Pain management. Physical therapy. Code(s): S72.002A - FRACTURE OF UNSP PART OF NECK OF LEFT FEMUR, INIT Qualifiers: Encounter type: initial encounter (2) History of angina Assessment/Plan: Recommend lowering dose of ASA from 325 mg to 81 mg, unless other reasons exist for the need of the higher level. On Imdur. On verapamil. F/u lipids (on statin). Code(s): Z86.79 - PERSONAL HISTORY OF OTHER DISEASES OF THE CIRCULATORY SYSTEM (3) Hyperlipidemia Assessment/Plan: on statin; f/u lipids. Code(s): E78.5 - HYPERLIPIDEMIA, UNSPECIFIED (4) Hypertension Assessment/Plan: On verapamil. f/u BP serially. Code(s): I10 - ESSENTIAL (PRIMARY) HYPERTENSION Qualifiers: Hypertension type: essential hypertension Qualified Code(s): I10 - Essential (primary) hypertension (5) Swelling of left knee joint Code(s): M25.462 - EFFUSION, LEFT KNEE (6) Hypomagnesemia Assessment/Plan: Mg now WNL, but K+ remains low. Code(s): E83.42 - HYPOMAGNESEMIA (7) Leukocytosis Assessment/Plan: Afebrile. Denies dysuria; no cough or sore throat. F/u serially; Code(s): D72.829 - ELEVATED WHITE BLOOD CELL COUNT, UNSPECIFIED
[2017-05-09] MEDS: ATORVASTATIN CA 20 MG TABLET (FP) PO SCH (21:25)
[2017-05-10 08:16] LABS: BASOPHIL 0.3 % (0-2.0); EOSINOPHIL 2.7 % (0-4.5); MCH 29.8 pg (25.7-33.7); MCHC 33.2 g/dl (32.0-36.0); MEAN CELL VOLUME 89.8 fl (80-96); NEUTROPHILS 78.7 % (42.8-82.8); PLATELET COUNT 206 K/MM3 (134-434); RDW 13.5 % (11.6-15.6); WHITE BLOOD COUNT 14.3 K/mm3 (4.0-10.0)
[2017-05-10 08:24] LABS: ANION GAP 8 (8-16); CALCIUM 8.5 mg/dL (8.5-10.1); CO2 27 mmol/L (21-32); CREATININE 1.7 mg/dL (0.55-1.02); GLUCOSE,RANDOM 89 mg/dL (74-106); PHOSPHOROUS 3.8 mg/dL (2.5-4.9)
[2017-05-10 09:08] LABS: URINE APPEARANCE CLOUDY; URINE BILIRUBIN NEGATIVE (NEGATIVE); URINE BLOOD 1+ (NEGATIVE); URINE COLOR AMBER; URINE GLUCOSE (UA) NEGATIVE (NEGATIVE); URINE KETONE NEGATIVE (NEGATIVE); URINE NITRITE NEGATIVE (NEGATIVE); URINE UROBILINOGEN NEGATIVE mg/dL (0.2-1.0)
[2017-05-10 09:09] LABS: URINE PROTEIN 2+ (NEGATIVE)
[2017-05-10 09:38] LABS: GRANULAR CASTS 4 /lpf; URINE HYALINE CAST 3 /lpf; URINE MUCUS RARE; URINE RBC 12 /hpf (0-3); URINE WBC 158 /hpf (3-5)
--- NOTE | 2017-05-10 09:47 | PN ---
Progress Note, Physician - Current Medication List Current Medications: Active Medications Aspirin (Asa -) 325 mg PO DAILY@0800 [facility] Last Admin: 05/09/17 09:08 Dose: 325 mg Atorvastatin Calcium (Lipitor -) 20 mg PO HS [facility] Last Admin: 05/09/17 21:25 Dose: 20 mg Enoxaparin Sodium (Lovenox -) 40 mg SQ DAILY [facility] Last Admin: 05/09/17 17:23 Dose: 40 mg Fentanyl (Sublimaze Injection -) 25 mcg IVPUSH [id number] PRN PRN Reason: PAIN Isosorbide Mononitrate (Imdur -) 60 mg PO DAILY [facility] Last Admin: 05/09/17 09:09 Dose: 60 mg Morphine Sulfate (Morphine Sulfate) 1 mg IVPB Q4H PRN Oxycodone HCl (Roxicodone -) 5 mg PO Q4H PRN Last Admin: 05/09/17 21:25 Dose: 5 mg Verapamil HCl (Calan Sr -) 240 mg PO DAILY [facility] Last Admin: 05/09/17 09:08 Dose: 240 mg - Objective Vital Signs: Vital Signs Temperature 97.7 F 05/10/17 09:01 Pulse Rate 76 05/10/17 09:01 Respiratory Rate 18 05/10/17 09:01 Blood Pressure 126/54 05/10/17 09:01 O2 Sat by Pulse Oximetry (%) 95 05/09/17 21:00 Eyes: Yes: WNL, Conjunctiva Clear, EOM Intact HENT: Yes: WNL, Atraumatic, Normocephalic Neck: Yes: WNL, Supple, Trachea Midline Cardiovascular: Yes: WNL, Regular Rate and Rhythm Respiratory: Yes: WNL, Regular, CTA Bilaterally Gastrointestinal: Yes: WNL, Normal Bowel Sounds Genitourinary: Yes: WNL Musculoskeletal: Yes: WNL Extremities: Yes: WNL Edema: No Integumentary: Yes: WNL Neurological: Yes: WNL, Alert, Oriented ...Motor Strength: WNL Psychiatric: Yes: WNL Labs: CBC, BMP 05/10/17 06:00 05/10/17 06:00 INR, PTT INR 1.04 (0.82-1.09) 05/06/17 15:18 Problem List - Problems (1) DVT prophylaxis Code(s): [id number] - (2) Fracture of femoral neck, left Code(s): S72.002A - FRACTURE OF UNSP PART OF NECK OF LEFT FEMUR, INIT Qualifiers: Encounter type: initial encounter (3) History of angina Code(s): Z86.79 - PERSONAL HISTORY OF OTHER DISEASES OF THE CIRCULATORY SYSTEM (4) Left knee pain Code(s): M25.562 - PAIN IN LEFT KNEE (5) Leukocytosis Code(s): D72.829 - ELEVATED WHITE BLOOD CELL COUNT, UNSPECIFIED (6) Transcervical fracture of left femur Code(s): S72.032A - DISPLACED MIDCERVICAL FRACTURE OF LEFT FEMUR, INIT Qualifiers: Encounter type: initial encounter Fracture type: closed Qualified Code(s) : S72.032A - Displaced midcervical fracture of left femur, initial encounter for closed fracture (7) Arthralgia Code(s): M25.50 - PAIN IN UNSPECIFIED JOINT Qualifiers: Joint pain location: knee Laterality: left Qualified Code(s): M25.562 - Pain in left knee (8) Cellulitis of left leg Code(s): L03.116 - CELLULITIS OF LEFT LOWER LIMB (9) Edema Code(s): R60.9 - EDEMA, UNSPECIFIED Qualifiers: Edema type: localized Qualified Code(s): R60.0 - Localized edema (10) Humeral surgical neck fracture Code(s): S42.213A - UNSP DISP FX OF SURGICAL NECK OF UNSP HUMERUS, INIT (11) Hyperlipidemia Code(s): E78.5 - HYPERLIPIDEMIA, UNSPECIFIED (12) Hypertension Code(s): I10 - ESSENTIAL (PRIMARY) HYPERTENSION Qualifiers: Hypertension type: essential hypertension Qualified Code(s): I10 - Essential (primary) hypertension (13) Swelling of left knee joint Code(s): M25.462 - EFFUSION, LEFT KNEE Assessment/Plan Problems (1) Fracture of femoral neck, left Assessment/Plan: Pain management. Physical therapy. Code(s): S72.002A - FRACTURE OF UNSP PART OF NECK OF LEFT FEMUR, INIT Qualifiers: Encounter type: initial encounter (2) History of angina Assessment/Plan: Recommend lowering dose of ASA from 325 mg to 81 mg, unless other reasons exist for the need of the higher level. On Imdur. On verapamil. F/u lipids (on statin). Code(s): Z86.79 - PERSONAL HISTORY OF OTHER DISEASES OF THE CIRCULATORY SYSTEM (3) Hyperlipidemia Assessment/Plan: on statin; f/u lipids. Code(s): E78.5 - HYPERLIPIDEMIA, UNSPECIFIED (4) Hypertension Assessment/Plan: On verapamil. f/u BP serially. Code(s): I10 - ESSENTIAL (PRIMARY) HYPERTENSION Qualifiers: Hypertension type: essential hypertension Qualified Code(s): I10 - Essential (primary) hypertension (5) Swelling of left knee joint Code(s): M25.462 - EFFUSION, LEFT KNEE (6) Hypomagnesemia Assessment/Plan: Mg now WNL, but K+ remains low. Code(s): E83.42 - HYPOMAGNESEMIA (7) Leukocytosis Assessment/Plan: Afebrile. Denies dysuria; no cough or sore throat. F/u serially; Code(s): D72.829 - ELEVATED WHITE BLOOD CELL COUNT, UNSPECIFIED
[2017-05-10] MEDS: ASPIRIN 325 MG TABLET PO SCH (10:16)
[2017-05-10] MEDS: VERAPAMIL HCL 240 MG E.R. TABLET (FP) PO SCH (10:16)
[2017-05-10] MEDS: ENOXAPARIN NA (PORCINE) 40 MG/0.4 ML DISP.SYRIN SQ SCH (10:16)
[2017-05-10] MEDS: oxyCODONE HCL 5 MG TABLET PO PRN (10:17)
[2017-05-10] MEDS: ISOSORBIDE MONONITRATE 60 MG TAB.SR.24H (FP) PO SCH (10:17)
--- NOTE | 2017-05-10 11:23 | PN ---
Progress Note, Physician - Current Medication List Current Medications: Active Medications Aspirin (Asa -) 325 mg PO DAILY@0800 [facility] Last Admin: 05/10/17 10:16 Dose: 325 mg Atorvastatin Calcium (Lipitor -) 20 mg PO HS [facility] Last Admin: 05/09/17 21:25 Dose: 20 mg Enoxaparin Sodium (Lovenox -) 40 mg SQ DAILY [facility] Last Admin: 05/10/17 10:16 Dose: 40 mg Fentanyl (Sublimaze Injection -) 25 mcg IVPUSH [id number] PRN PRN Reason: PAIN Isosorbide Mononitrate (Imdur -) 60 mg PO DAILY [facility] Last Admin: 05/10/17 10:17 Dose: 60 mg Morphine Sulfate (Morphine Sulfate) 1 mg IVPB Q4H PRN Oxycodone HCl (Roxicodone -) 5 mg PO Q4H PRN Last Admin: 05/10/17 10:17 Dose: 5 mg Verapamil HCl (Calan Sr -) 240 mg PO DAILY [facility] Last Admin: 05/10/17 10:16 Dose: 240 mg - Objective Vital Signs: Vital Signs Temperature 97.7 F 05/10/17 09:01 Pulse Rate 76 05/10/17 09:01 Respiratory Rate 18 05/10/17 09:01 Blood Pressure 126/54 05/10/17 09:01 O2 Sat by Pulse Oximetry (%) 95 05/09/17 21:00 Constitutional: Yes: Well Nourished, No Distress, Calm Eyes: Yes: WNL HENT: Yes: WNL, Atraumatic Neck: Yes: WNL Cardiovascular: Yes: WNL, Regular Rate and Rhythm, S1, S2 Gastrointestinal: Yes: WNL, Normal Bowel Sounds, Soft Labs: CBC, BMP 05/10/17 06:00 05/10/17 06:00 INR, PTT INR 1.04 (0.82-1.09) 05/06/17 15:18 Assessment/Plan - Problems (1) DVT prophylaxis Code(s): [id number] - (2) Fracture of femoral neck, left Code(s): S72.002A - FRACTURE OF UNSP PART OF NECK OF LEFT FEMUR, INIT Qualifiers: Encounter type: initial encounter (3) History of angina Code(s): Z86.79 - PERSONAL HISTORY OF OTHER DISEASES OF THE CIRCULATORY SYSTEM (4) Left knee pain Code(s): M25.562 - PAIN IN LEFT KNEE (5) Leukocytosis Code(s): D72.829 - ELEVATED WHITE BLOOD CELL COUNT, UNSPECIFIED (6) Transcervical fracture of left femur Code(s): S72.032A - DISPLACED MIDCERVICAL FRACTURE OF LEFT FEMUR, INIT Qualifiers: Encounter type: initial encounter Fracture type: closed Qualified Code(s) : S72.032A - Displaced midcervical fracture of left femur, initial encounter for closed fracture (7) Arthralgia Code(s): M25.50 - PAIN IN UNSPECIFIED JOINT Qualifiers: Joint pain location: knee Laterality: left Qualified Code(s): M25.562 - Pain in left knee (8) Cellulitis of left leg Code(s): L03.116 - CELLULITIS OF LEFT LOWER LIMB (9) Edema Code(s): R60.9 - EDEMA, UNSPECIFIED Qualifiers: Edema type: localized Qualified Code(s): R60.0 - Localized edema (10) Humeral surgical neck fracture Code(s): S42.213A - UNSP DISP FX OF SURGICAL NECK OF UNSP HUMERUS, INIT (11) Hyperlipidemia Code(s): E78.5 - HYPERLIPIDEMIA, UNSPECIFIED Assessment/Plan Problems (1) Fracture of femoral neck, left Assessment/Plan: Pain management. c/w Physical therapy. (2) History of angina Assessment/Plan: Recommend lowering dose of ASA from 325 mg to 81 mg, unless other reasons exist for the need of the higher level. c/w isosorbide MN c/w verapamil. F/u lipids (on statin). Code(s): Z86.79 - PERSONAL HISTORY OF OTHER DISEASES OF THE CIRCULATORY SYSTEM (3) Hyperlipidemia Assessment/Plan: on statin; f/u lipids. (4) Hypertension Assessment/Plan: On verapamil. f/u BP serially. (5) Swelling of left knee joint c/w pain management monitor for sign of infection obtain uric acid level (6) Hypomagnesemia Assessment/Plan: Mg now WNL, but K+ remains low. (7) Leukocytosis Assessment/Plan: Afebrile. Denies dysuria; no cough or sore throat. F/u serially; will consider d/c if the WBC < 10K without any symptoms of infection
[2017-05-10 15:48] LABS: URINE LEUK ESTERASE 2+ (NEGATIVE)
[2017-05-10] MEDS: ATORVASTATIN CA 20 MG TABLET (FP) PO SCH (21:03)
[2017-05-11 08:24] LABS: BASOPHIL 0.7 % (0-2.0); EOSINOPHIL 5.4 % (0-4.5); MCH 29.9 pg (25.7-33.7); MEAN CELL VOLUME 90.6 fl (80-96); MEAN PLT VOLUME 8.7 fl (7.5-11.1); NEUTROPHILS 71.8 % (42.8-82.8); PLATELET COUNT 216 K/MM3 (134-434); RDW 13.3 % (11.6-15.6)
[2017-05-11] MEDS: ASPIRIN 325 MG TABLET PO SCH (08:28)
[2017-05-11 08:29] LABS: ALBUMIN 2.3 g/dl (3.4-5.0); ANION GAP 7 (8-16); CALCIUM 8.4 mg/dL (8.5-10.1); CO2 28 mmol/L (21-32); CREATININE 1.4 mg/dL (0.55-1.02); GLUCOSE,RANDOM 90 mg/dL (74-106); SGOT/AST 23 U/L (15-37); SGPT/ALT 10 U/L (12-78)
[2017-05-11 08:30] LABS: ALK PHOS 49 U/L (45-117); BILIRUBIN,TOTAL 0.8 mg/dL (0.2-1.0); TOT PROT 5.1 g/dl (6.4-8.2)
--- NOTE | 2017-05-11 09:20 | PN ---
Progress Note, Physician - Current Medication List Current Medications: Active Medications Aspirin (Asa -) 325 mg PO DAILY@0800 [facility] Last Admin: 05/11/17 08:28 Dose: 325 mg Atorvastatin Calcium (Lipitor -) 20 mg PO HS [facility] Last Admin: 05/10/17 21:03 Dose: 20 mg Enoxaparin Sodium (Lovenox -) 40 mg SQ DAILY [facility] Last Admin: 05/10/17 10:16 Dose: 40 mg Fentanyl (Sublimaze Injection -) 25 mcg IVPUSH [id number] PRN PRN Reason: PAIN Isosorbide Mononitrate (Imdur -) 60 mg PO DAILY [facility] Last Admin: 05/10/17 10:17 Dose: 60 mg Morphine Sulfate (Morphine Sulfate) 1 mg IVPB Q4H PRN Oxycodone HCl (Roxicodone -) 5 mg PO Q4H PRN Last Admin: 05/10/17 10:17 Dose: 5 mg Verapamil HCl (Calan Sr -) 240 mg PO DAILY [facility] Last Admin: 05/10/17 10:16 Dose: 240 mg - Objective Vital Signs: Vital Signs Temperature 98.8 F 05/11/17 06:00 Pulse Rate 76 05/11/17 06:00 Respiratory Rate 18 05/11/17 06:00 Blood Pressure 122/59 05/11/17 06:00 O2 Sat by Pulse Oximetry (%) 96 05/10/17 21:00 Eyes: Yes: WNL, Conjunctiva Clear, EOM Intact HENT: Yes: WNL, Atraumatic, Normocephalic Neck: Yes: WNL, Supple, Trachea Midline Cardiovascular: Yes: WNL, Regular Rate and Rhythm Respiratory: Yes: WNL, Regular, CTA Bilaterally Gastrointestinal: Yes: WNL, Normal Bowel Sounds Genitourinary: Yes: WNL Musculoskeletal: Yes: WNL Extremities: Yes: WNL Edema: No Integumentary: Yes: WNL Neurological: Yes: WNL, Alert, Oriented ...Motor Strength: WNL Psychiatric: Yes: WNL Labs: CBC, BMP 05/11/17 07:00 05/11/17 07:00 INR, PTT INR 1.04 (0.82-1.09) 05/06/17 15:18 Problem List - Problems (1) DVT prophylaxis Code(s): [id number] - (2) Fracture of femoral neck, left Code(s): S72.002A - FRACTURE OF UNSP PART OF NECK OF LEFT FEMUR, INIT Qualifiers: Encounter type: initial encounter (3) History of angina Code(s): Z86.79 - PERSONAL HISTORY OF OTHER DISEASES OF THE CIRCULATORY SYSTEM (4) Left knee pain Code(s): M25.562 - PAIN IN LEFT KNEE (5) Leukocytosis Code(s): D72.829 - ELEVATED WHITE BLOOD CELL COUNT, UNSPECIFIED (6) Transcervical fracture of left femur Code(s): S72.032A - DISPLACED MIDCERVICAL FRACTURE OF LEFT FEMUR, INIT Qualifiers: Encounter type: initial encounter Fracture type: closed Qualified Code(s) : S72.032A - Displaced midcervical fracture of left femur, initial encounter for closed fracture (7) Arthralgia Code(s): M25.50 - PAIN IN UNSPECIFIED JOINT Qualifiers: Joint pain location: knee Laterality: left Qualified Code(s): M25.562 - Pain in left knee (8) Cellulitis of left leg Code(s): L03.116 - CELLULITIS OF LEFT LOWER LIMB (9) Edema Code(s): R60.9 - EDEMA, UNSPECIFIED Qualifiers: Edema type: localized Qualified Code(s): R60.0 - Localized edema (10) Humeral surgical neck fracture Code(s): S42.213A - UNSP DISP FX OF SURGICAL NECK OF UNSP HUMERUS, INIT (11) Hyperlipidemia Code(s): E78.5 - HYPERLIPIDEMIA, UNSPECIFIED (12) Hypertension Code(s): I10 - ESSENTIAL (PRIMARY) HYPERTENSION Qualifiers: Hypertension type: essential hypertension Qualified Code(s): I10 - Essential (primary) hypertension (13) Swelling of left knee joint Code(s): M25.462 - EFFUSION, LEFT KNEE Assessment/Plan Problems (1) Fracture of femoral neck, left Assessment/Plan: Pain management. Physical therapy. Code(s): S72.002A - FRACTURE OF UNSP PART OF NECK OF LEFT FEMUR, INIT Qualifiers: Encounter type: initial encounter (2) History of angina Assessment/Plan: Recommend lowering dose of ASA from 325 mg to 81 mg, unless other reasons exist for the need of the higher level. On Imdur. On verapamil. F/u lipids (on statin). Code(s): Z86.79 - PERSONAL HISTORY OF OTHER DISEASES OF THE CIRCULATORY SYSTEM (3) Hyperlipidemia Assessment/Plan: on statin; f/u lipids. Code(s): E78.5 - HYPERLIPIDEMIA, UNSPECIFIED (4) Hypertension Assessment/Plan: On verapamil. f/u BP serially. Code(s): I10 - ESSENTIAL (PRIMARY) HYPERTENSION Qualifiers: Hypertension type: essential hypertension Qualified Code(s): I10 - Essential (primary) hypertension (5) Swelling of left knee joint Code(s): M25.462 - EFFUSION, LEFT KNEE (6) Hypomagnesemia Assessment/Plan: Mg now WNL, but K+ remains low. Code(s): E83.42 - HYPOMAGNESEMIA (7) Leukocytosis Assessment/Plan: Afebrile. Denies dysuria; no cough or sore throat. F/u serially; Code(s): D72.829 - ELEVATED WHITE BLOOD CELL COUNT, UNSPECIFIED
[2017-05-11] MEDS: ISOSORBIDE MONONITRATE 60 MG TAB.SR.24H (FP) PO SCH (10:37)
[2017-05-11] MEDS: ENOXAPARIN NA (PORCINE) 40 MG/0.4 ML DISP.SYRIN SQ SCH (10:37)
[2017-05-11] MEDS: VERAPAMIL HCL 240 MG E.R. TABLET (FP) PO SCH (10:37)
--- NOTE | 2017-05-11 11:53 | PN ---
Progress Note (short form) - Note Progress Note: Pt on POD #4 s/p L hip rivas, doing well, comfortable, + OOB, + doing P.T., no sig c/o pain. AVSS H/H stable, now at 9.7/29.3 B/L LE are NVI with good ROM and strength Plan: Dc planning, can transfer from an ortho pov F/U as an out pt in 7-10 days
--- NOTE | 2017-05-11 15:32 | PN ---
Physical Exam: SUBJECTIVE: Patient seen and examined. OOB to chair, no issues. OBJECTIVE: Vital Signs Period Temp Pulse Resp BP Sys/Garcia Pulse Ox Last 24 Hr 97.2 F-99.0 F 70-78 18-20 118-132/52-59 96-96 PE Neuro: alert, awake, cn 2-12intact Pulm: CTAB CV: s1 s2 rrr no mrg Abd: s nt nd + bs Ext: L hip dressing cdi, no le edema Laboratory Results - last 24 hr 05/10/17 05/11/17 05/11/17 07:00 07:00 07:00 WBC 10.0 D RBC 3.23 L Hgb 9.7 L Hct 29.3 L MCV 90.6 MCH 29.9 MCHC 33.0 RDW 13.3 Plt Count 216 MPV 8.7 Neutrophils % 71.8 Lymphocytes % 10.2 D Monocytes % 11.9 H Eosinophils % 5.4 H D Basophils % 0.7 Sodium 140 Potassium 4.3 Chloride 105 Carbon Dioxide 28 Anion Gap 7 L BUN 59 H Creatinine 1.4 H Creat Clearance w eGFR 35.41 Random Glucose 90 Calcium 8.4 L Total Bilirubin 0.8 AST 23 D ALT 10 L D Alkaline Phosphatase 49 Total Protein 5.1 L D Albumin 2.3 L D Ur Leukocyte Esterase 2+ H Active Medications Generic Name Dose Route Start Last Admin Trade Name Freq PRN Reason Stop Dose Admin Aspirin 325 mg 05/08/17 08:00 05/11/17 08:28 Asa - PO 325 mg DAILY@0800 OLINDA Administration Atorvastatin Calcium 20 mg 05/07/17 22:00 05/10/17 21:03 Lipitor - PO 20 mg HS OLINDA Administration Enoxaparin Sodium 40 mg 05/09/17 17:30 05/11/17 10:37 Lovenox - SQ 40 mg DAILY OLINDA Administration Fentanyl 25 mcg 05/07/17 15:39 Sublimaze Injection - IVPUSH [id number] PRN PAIN Isosorbide Mononitrate 60 mg 05/08/17 10:00 05/11/17 10:37 Imdur - PO 60 mg DAILY OLINDA Administration Morphine Sulfate 1 mg 05/08/17 20:07 Morphine Sulfate IVPB Q4H PRN Oxycodone HCl 5 mg 05/08/17 20:08 05/10/17 10:17 Roxicodone - PO 5 mg Q4H PRN Administration Verapamil HCl 240 mg 05/08/17 10:00 05/11/17 10:37 Calan Sr - PO 240 mg DAILY [facility] Administration Assessment: 87 year old female admitted with fractured femur Plan: 1. Fracture of femoral neck, left - s/p s/p L hip rivas 05/07 - PT daily - SNF placement 2. History of angina -Decreased ASA 81mg today - Continue isosorbide MN - Continue verapamil - Statin 3. Leukocytosis/asymptomatic bacturia - UA + UTI - Pt asymptomatic - WBC 10k today w/o abx - No other infectious signs noted - SNF tomorrow 4. Hyperlipidemia on statin 5. Hypertension - Controlled - Meds above 6. Swelling of left knee joint - Monitor for sign of infection - Obtain uric acid level 7. ABRAHAN - Improving Visit type - Emergency Visit Emergency Visit: Yes ED Registration Date: 05/06/17 Care time: The patient presented to the Emergency Department on the above date and was hospitalized for further evaluation of their emergent condition. - New Patient This patient is new to me today: Yes Date on this admission: 05/11/17 - Critical Care Critical Care patient: No
[2017-05-11] MEDS ORDERED: ASPIRIN COATED 81 MG TABLET.EC PO SCH (15:37)
[2017-05-11] MEDS: ATORVASTATIN CA 20 MG TABLET (FP) PO SCH (21:19)
[2017-05-12 07:48] LABS: EOSINOPHIL 7.1 % (0-4.5); MCH 30.4 pg (25.7-33.7); MCHC 33.9 g/dl (32.0-36.0); MEAN CELL VOLUME 89.5 fl (80-96); MEAN PLT VOLUME 7.9 fl (7.5-11.1); NEUTROPHILS 66.5 % (42.8-82.8); PLATELET COUNT 258 K/MM3 (134-434); RDW 13.5 % (11.6-15.6); WHITE BLOOD COUNT 7.5 K/mm3 (4.0-10.0)
[2017-05-12 08:33] LABS: ANION GAP 9 (8-16); CALCIUM 8.3 mg/dL (8.5-10.1); CO2 25 mmol/L (21-32); CREATININE 0.9 mg/dL (0.55-1.02); GLUCOSE,RANDOM 93 mg/dL (74-106)
--- NOTE | 2017-05-12 09:28 | PN ---
Progress Note (short form) - Note Progress Note: Ortho Pt seen and examined s/p left hip rivas pod Selected Entries 05/12/17 05:29 Temperature 98.3 F Pulse Rate 83 Respiratory 20 Rate Blood Pressure 128/57 Laboratory Tests 05/12/17 07:15 WBC 7.5 Hgb 9.8 L Hct 29.0 L Plt Count 258 dressing c/d/i, calf soft, nt nvi a/p PT hip precautions dvt ppx pain control d/c planning
[2017-05-12 10:16] VITALS: PULSE 78
[2017-05-12] MEDS: oxyCODONE HCL 5 MG TABLET PO PRN (10:19)
[2017-05-12] MEDS: ENOXAPARIN NA (PORCINE) 40 MG/0.4 ML DISP.SYRIN SQ SCH (10:19)
[2017-05-12] MEDS: VERAPAMIL HCL 240 MG E.R. TABLET (FP) PO SCH (10:19)
[2017-05-12] MEDS: ISOSORBIDE MONONITRATE 60 MG TAB.SR.24H (FP) PO SCH (10:19)
--- NOTE | 2017-05-12 12:02 | PN ---
Progress Note, Physician - Current Medication List Current Medications: Active Medications Aspirin (Ecotrin -) 81 mg PO DAILY@0800 [facility] Last Admin: 05/12/17 08:30 Dose: 81 mg Atorvastatin Calcium (Lipitor -) 20 mg PO HS [facility] Last Admin: 05/11/17 21:19 Dose: 20 mg Enoxaparin Sodium (Lovenox -) 40 mg SQ DAILY [facility] Last Admin: 05/12/17 10:19 Dose: 40 mg Fentanyl (Sublimaze Injection -) 25 mcg IVPUSH [id number] PRN PRN Reason: PAIN Isosorbide Mononitrate (Imdur -) 60 mg PO DAILY [facility] Last Admin: 05/12/17 10:19 Dose: 60 mg Morphine Sulfate (Morphine Sulfate) 1 mg IVPB Q4H PRN Oxycodone HCl (Roxicodone -) 5 mg PO Q4H PRN Last Admin: 05/12/17 10:19 Dose: 5 mg Verapamil HCl (Calan Sr -) 240 mg PO DAILY [facility] Last Admin: 05/12/17 10:19 Dose: 240 mg - Objective Vital Signs: Vital Signs Temperature 98.5 F 05/12/17 10:00 Pulse Rate 78 05/12/17 10:00 Respiratory Rate 20 05/12/17 10:00 Blood Pressure 121/62 05/12/17 10:00 O2 Sat by Pulse Oximetry (%) 95 05/11/17 21:00 Eyes: Yes: WNL, Conjunctiva Clear, EOM Intact HENT: Yes: WNL, Atraumatic, Normocephalic Neck: Yes: WNL, Supple, Trachea Midline Cardiovascular: Yes: WNL, Regular Rate and Rhythm Respiratory: Yes: WNL, Regular, CTA Bilaterally Gastrointestinal: Yes: WNL, Normal Bowel Sounds Genitourinary: Yes: WNL Musculoskeletal: Yes: WNL Extremities: Yes: WNL Edema: No Integumentary: Yes: WNL Neurological: Yes: WNL, Alert, Oriented ...Motor Strength: WNL Psychiatric: Yes: WNL Labs: CBC, BMP 05/12/17 07:15 05/12/17 07:15 INR, PTT INR 1.04 (0.82-1.09) 05/06/17 15:18 Problem List - Problems (1) DVT prophylaxis Code(s): [id number] - (2) Fracture of femoral neck, left Code(s): S72.002A - FRACTURE OF UNSP PART OF NECK OF LEFT FEMUR, INIT Qualifiers: Encounter type: initial encounter (3) History of angina Code(s): Z86.79 - PERSONAL HISTORY OF OTHER DISEASES OF THE CIRCULATORY SYSTEM (4) Left knee pain Code(s): M25.562 - PAIN IN LEFT KNEE (5) Leukocytosis Code(s): D72.829 - ELEVATED WHITE BLOOD CELL COUNT, UNSPECIFIED (6) Transcervical fracture of left femur Code(s): S72.032A - DISPLACED MIDCERVICAL FRACTURE OF LEFT FEMUR, INIT Qualifiers: Encounter type: initial encounter Fracture type: closed Qualified Code(s) : S72.032A - Displaced midcervical fracture of left femur, initial encounter for closed fracture (7) Arthralgia Code(s): M25.50 - PAIN IN UNSPECIFIED JOINT Qualifiers: Joint pain location: knee Laterality: left Qualified Code(s): M25.562 - Pain in left knee (8) Cellulitis of left leg Code(s): L03.116 - CELLULITIS OF LEFT LOWER LIMB (9) Edema Code(s): R60.9 - EDEMA, UNSPECIFIED Qualifiers: Edema type: localized Qualified Code(s): R60.0 - Localized edema (10) Humeral surgical neck fracture Code(s): S42.213A - UNSP DISP FX OF SURGICAL NECK OF UNSP HUMERUS, INIT (11) Hyperlipidemia Code(s): E78.5 - HYPERLIPIDEMIA, UNSPECIFIED (12) Hypertension Code(s): I10 - ESSENTIAL (PRIMARY) HYPERTENSION Qualifiers: Hypertension type: essential hypertension Qualified Code(s): I10 - Essential (primary) hypertension (13) Swelling of left knee joint Code(s): M25.462 - EFFUSION, LEFT KNEE Assessment/Plan Problems (1) Fracture of femoral neck, left Assessment/Plan: Pain management. Physical therapy. Code(s): S72.002A - FRACTURE OF UNSP PART OF NECK OF LEFT FEMUR, INIT Qualifiers: Encounter type: initial encounter (2) History of angina Assessment/Plan: Recommend lowering dose of ASA from 325 mg to 81 mg, unless other reasons exist for the need of the higher level. On Imdur. On verapamil. F/u lipids (on statin). Code(s): Z86.79 - PERSONAL HISTORY OF OTHER DISEASES OF THE CIRCULATORY SYSTEM (3) Hyperlipidemia Assessment/Plan: on statin; f/u lipids. Code(s): E78.5 - HYPERLIPIDEMIA, UNSPECIFIED (4) Hypertension Assessment/Plan: On verapamil. f/u BP serially. Code(s): I10 - ESSENTIAL (PRIMARY) HYPERTENSION Qualifiers: Hypertension type: essential hypertension Qualified Code(s): I10 - Essential (primary) hypertension (5) Swelling of left knee joint Code(s): M25.462 - EFFUSION, LEFT KNEE (6) Hypomagnesemia Assessment/Plan: Mg now WNL, but K+ remains low. Code(s): E83.42 - HYPOMAGNESEMIA (7) Leukocytosis Assessment/Plan: Afebrile. Denies dysuria; no cough or sore throat. F/u serially; Code(s): D72.829 - ELEVATED WHITE BLOOD CELL COUNT, UNSPECIFIED
--- NOTE | 2017-05-12 13:56 | DS ---
Physical Examination Vital Signs: Vital Signs Temperature 36.9 C 05/12/17 10:00 Pulse Rate 78 05/12/17 10:00 Respiratory Rate 20 05/12/17 10:00 Blood Pressure 121/62 05/12/17 10:00 O2 Sat by Pulse Oximetry (%) 96 05/12/17 09:00 Constitutional: Yes: Well Nourished, No Distress, Calm Cardiovascular: Yes: Regular Rate and Rhythm. No: Gallop, Murmur, Rub Respiratory: Yes: Regular, CTA Bilaterally. No: Rales, Rhonchi, Wheezes Gastrointestinal: Yes: Normal Bowel Sounds, Soft. No: Distention, Tenderness Extremities: Yes: WNL Edema: No Labs: CBC, BMP 05/12/17 07:15 05/12/17 07:15 Discharge Summary Reason For Visit: TRANSCERVICAL FRACTURE OF LEFT FEMUR Current Active Problems DVT prophylaxis (Acute) Fracture of femoral neck, left (Acute) History of angina (Acute) Hypomagnesemia (Acute) Left knee pain (Acute) Leukocytosis (Acute) Transcervical fracture of left femur (Acute) Hospital Course: (1) Fracture of femoral neck, left Code(s): S72.002A - FRACTURE OF UNSP PART OF NECK OF LEFT FEMUR, INIT Qualifiers: Encounter type: initial encounter (2) Hyperlipidemia Code(s): E78.5 - HYPERLIPIDEMIA, UNSPECIFIED (3) Hypertension Code(s): I10 - ESSENTIAL (PRIMARY) HYPERTENSION Qualifiers: Hypertension type: essential hypertension Qualified Code(s): I10 - Essential (primary) hypertension (4) Leukocytosis Code(s): D72.829 - ELEVATED WHITE BLOOD CELL COUNT, UNSPECIFIED Ms Hair is a pleasant 87 year old female who comes in with L femoral neck fracture. She was seen by cardiology and cleared for surgery. She was seen by orthos and underwent repair. She tolerated the repair well. Her stay was complicated by leukocytosis, this was reactionary and resolved without treatment. She is safe for discharge to SNF today. 31 minutes spent in preparation of this discharge Condition: Stable - Instructions Diet, Activity, Other Instructions: low sodium diet. Up with assistance, further activity per PT at SNF Referrals: Faisal Moreau MD [Primary Care Provider] - Tal Tapia MD [Staff Physician] - Disposition: NURSING HOME FACILITY - Home Medications Comprehensive Discharge Medication List: Ambulatory Orders Beta-Carotene(A) W-C & E/Min [Ocuvite Tablet] 1 each PO DAILY 02/15/13 Ca Cmb No.1/Vit D3/B-6/FA/B12 [Vitamin D3 1,000 Unit Tablet] 2,000 each PO DAILY 02/15/13 Isosorbide Mononitrate [Imdur -] 60 mg PO DAILY 02/15/13 Simvastatin [Zocor -] 20 mg PO DAILY 02/15/13 Verapamil HCl [Verapamil ER] 240 mg PO DAILY 02/15/13 Aspirin Coated [Ecotrin -] 81 mg PO DAILY@0800 tablet.ec 05/12/17 Enoxaparin [Lovenox -] 40 mg SQ DAILY disp.syrin 05/12/17 Oxycodone HCl [Roxicodone -] 5 mg PO Q4H PRN tablet MDD 30mg 05/12/17
[2017-05-12 15:02] VITALS: BP 137/56; TEMP 97.9
== END 2017-05-12 17:18 | DRG 470 ==
LOC: JER 12:07 → JERBED 19:52 → J6S 23:27
PROVIDERS: ADMIT Internal Medicine; ATTEND Internal Medicine
PROC: 0SRS0JA Replacement of Left Hip Joint, Femoral Surface with Synthetic Substitute, Uncemented, Open Approach (ICD-10-PCS; principal; 2017-05-06)
DX: S72.032A Displaced midcervical fracture of left femur, initial encounter for closed fracture (principal); I50.30 Unspecified diastolic (congestive) heart failure; N39.0 Urinary tract infection, site not specified; N17.9 Acute kidney failure, unspecified; I20.8 Other forms of angina pectoris; E03.9 Hypothyroidism, unspecified; E78.00 Pure hypercholesterolemia, unspecified; M25.562 Pain in left knee; D72.828 Other elevated white blood cell count; K29.60 Other gastritis without bleeding; K27.9 Peptic ulcer, site unspecified, unspecified as acute or chronic, without hemorrhage or perforation; I34.0 Nonrheumatic mitral (valve) insufficiency; M25.462 Effusion, left knee; E83.42 Hypomagnesemia; I11.0 Hypertensive heart disease with heart failure; W01.0XXA Fall on same level from slipping, tripping and stumbling without subsequent striking against object, initial encounter; Y93.89 Activity, other specified; Y92.89 Other specified places as the place of occurrence of the external cause
CPT/HCPCS: 36415; 71010-TC; 73502-TC-LT; 73523-TC; 73562-TC-LT; 80048; 80053; 81003; 81015; 83735; 84100; 85025; 85027; 85610; 86850; 86900; 86901; 88305-TC; 88311-TC; 93005; 93010; 93306-TC; 94760; 97116-GP; 97161-GP; 99284-25